=== PATIENT | female | born 1995 | race Caucasian/White ===

== ENCOUNTER 2017-03-23 07:51 | Emergency (ER) | payer OTHER ==
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
[2017-03-23 08:42] LABS: BASOPHILS % (AUTO) 0.7 %; EOSINOPHILS # (AUTO) 0.1 10^3/uL (0.0-0.7); EOSINOPHILS % (AUTO) 1.6 %; HCT - HEMATOCRIT 39.1 % (37.0-47.0); LYMPHOCYTES # (AUTO) 2.1 10^3/uL (1.5-3.5); LYMPHOCYTES % (AUTO) 28.3 %; MEAN CORPUSCULAR HEMOGLOBIN 29.9 pg (27.0-31.0); MEAN CORPUSCULAR HGB CONC 33.1 g/dL (32.0-36.0); MEAN CORPUSCULAR VOLUME 90.4 fL (81.0-99.0); MEAN PLATELET VOLUME 6.7 fL (7.9-10.8); MONOCYTES # (AUTO) 0.6 10^3/uL (0.0-1.0); MONOCYTES % (AUTO) 8.1 %; NEUTROPHILS # (AUTO) 4.5 10^3/uL (1.5-6.6); NEUTROPHILS % (AUTO) 61.3 %; RED BLOOD COUNT 4.33 10^6/uL (4.20-5.40); RED CELL DISTRIBUTION WIDTH 15.2 % (12.0-15.0); UNCORRECTED WHITE BLOOD COUNT 7.4 x10^3/uL; WHITE BLOOD COUNT 7.4 x10^3/uL (4.8-10.8)
[2017-03-23 08:49] LABS: CALCIUM 8.8 mg/dL (8.5-10.3); CREATININE 0.6 mg/dL (0.4-1.0); POTASSIUM 3.7 mmol/L (3.5-5.0)
--- NOTE | 2017-03-23 10:09 | XRAY Preliminary Report ---
Exam: XR Orbits Complete IMPRESSION: 1. No definite radiographic evidence of acute fracture or bone lesions. 2. Opacity projected over the left maxillary sinus. Differential might include sinusitis, hematoma, o r soft tissue swelling. If warranted, further evaluation with CT imaging may be helpful to exclude an orbital fracture and left maxillary sinus hematoma. [facility] SITE ID: [id number]
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
[2017-03-23] MEDS ORDERED: ONDANSETRON ODT 4 MG TABLET TL STA (10:29)
[2017-03-23] MEDS ORDERED: AZITHROMYCIN 250 MG TABLET PO STA (10:30)
[2017-03-23] MEDS ORDERED: cefTRIAXone 250 MG VIAL IM ONE (10:30)
[2017-03-23] MEDS ORDERED: ULIPRISTAL ACETATE 30 MG TABLET PO STA (10:31)
[2017-03-23] MEDS ORDERED: metroNIDAZOLE 250 MG TABLET PO STA (10:31)
[2017-03-23] MEDS ORDERED: ONDANSETRON ODT 4 MG TABLET ONE (10:32)
[2017-03-23] MEDS ORDERED: LIDOCAINE 1% 2 ML VIAL ONE (10:33)
[2017-03-23] MEDS ORDERED: cefTRIAXone 1 GM VIAL ONE (10:33)
[2017-03-23 10:56] LABS: BILIRUBIN,URINE NEGATIVE (NEGATIVE); PH,URINE 5.5 PH (5.0-7.5)
[2017-03-23 10:58] LABS: UA CHARGE (STRIP ONLY) YES; UR CULTURE IF IND NOT INDICATED
[2017-03-23] MEDS ORDERED: ULIPRISTAL ACETATE 30 MG TABLET PO ONE (12:11)
[2017-03-23] MEDS ORDERED: metroNIDAZOLE 250 MG TABLET PO ONE (12:11)
[2017-03-23 12:29] VITALS: BP 103/82
[2017-03-23] MEDS ORDERED: AZITHROMYCIN 250 MG TABLET PO ONE (13:00)
== END 2017-03-23 12:40 | disposition home or self-care (01) ==
LOC: ED 07:51
DX: S00.12XA Contusion of left eyelid and periocular area, initial encounter (principal); T76.21XA Adult sexual abuse, suspected, initial encounter; F17.200 Nicotine dependence, unspecified, uncomplicated; R93.0 Abnormal findings on diagnostic imaging of skull and head, not elsewhere classified; Y04.2XXA Assault by strike against or bumped into by another person, initial encounter; Y92.009 Unspecified place in unspecified non-institutional (private) residence as the place of occurrence of the external cause; Y99.8 Other external cause status
CPT/HCPCS: 0133C; 11760; 36415; 70200; 80048; 80306; 81003; 84703; 85025; 87491; 87591; 96372; 99283; A9270; Q0162; 81001; 87086

== ENCOUNTER 2018-01-09 23:20 | Outpatient (CLI) | payer OTHER | END 2018-01-09 23:21 | disposition EMS.NT | LOC: EMS 23:20 | PROVIDERS: ATTEND Surgery | DX: Z04.1 Encounter for examination and observation following transport accident (principal); V49.3XXA Car occupant (driver) (passenger) injured in unspecified nontraffic accident, initial encounter; Y92.89 Other specified places as the place of occurrence of the external cause ==